=== PATIENT | female | born 1985 | race African-American/Black ===

== ENCOUNTER 2021-01-15 00:47 | Observation (INO) | payer SELFPAY ==
[2021-01-15] MEDS ORDERED: Ondansetron PF 4 MG/2 ML Vial ONE (01:23)
[2021-01-15] MEDS ORDERED: Aspirin Chewable 81 MG TAB ONE (01:24)
[2021-01-15 01:28] LABS: #Basophils 0.1 10x3/uL (0.0-0.2); #Eosinphils 0.3 10x3/uL (0.0-0.5); #Monocytes 0.8 10x3/uL (0.0-1.1); #Neutrophils 3.4 10x3/uL (1.5-8.4); %Eosinophils 3.7 % (0.0-6.0); %Lymphocytes 40.6 % (18.0-47.0); %Monocytes 10.2 % (0.0-10.0); %Neutrophils 44.4 % (40.0-75.0); Hemoglobin 14.3 g/dL (12.0-15.5); Mean Corpuscular HGB CONC 33.5 g/dL (32.0-36.0); Mean Corpuscular Hemoglobin 29.9 pg (27.0-33.0); Mean Corpuscular Volume 89.3 fl (81.6-98.3); Mean Platelet Volume 11.8 fl (7.4-10.4); Platelet Count 228 10x3/uL (150-450); RBC Distribution Width 13.4 % (11.5-14.5); Red Blood Cell (RBC) Count 4.78 10x6/uL (3.90-5.03); White Blood Cell (WBC) Count 7.6 10x3/uL (3.5-10.5)
[2021-01-15] MEDS ORDERED: diphenhydrAMINE 50 MG/ML VIAL ONE (01:30)
[2021-01-15] MEDS ORDERED: Ketorolac Tromethamine 30 MG/ML VIAL ONE (01:31)
[2021-01-15] MEDS ORDERED: Metoclopramide HCl 10 MG/2 ML VIAL ONE (01:31)
[2021-01-15 01:36] LABS: BHCG - Serum POSITIVE (NEGATIVE); Pregs Control Background? CLEAR/WHITE (CLR/WHITE); Pregs Control Bar Appear? YES (CONTROL BAR)
[2021-01-15 01:45] LABS: ALT (SGPT) 15 U/L (8-55); AST (SGOT) 14 U/L (5-34); Albumin 4.3 g/dL (3.5-5.0); Alkaline Phosphatase 60 U/L (40-110); Anion Gap 14 mmol/L (10-20); BUN (Urea Nitrogen) 11 mg/dL (7.0-18.7); Bilirubin, Total 0.3 mg/dL (0.2-1.2); Calc. Creatinine Clearance 0 mL/min (70-130); Calcium 8.8 mg/dL (7.8-10.44); Carbon Dioxide 20 mmol/L (22-29); Chloride 108 mmol/L (98-107); Globulin 2.9 g/dL (2.4-3.5); Glucose 99 mg/dL (70-105); Lipase 56 U/L (8-78); Potassium 3.4 mmol/L (3.5-5.1); Protein, Total 7.2 g/dL (6.0-8.3); Sodium 139 mmol/L (136-145)
[2021-01-15] MEDS ORDERED: Promethazine HCl 25 MG/ML VIAL IM PRN (04:56)
[2021-01-15] MEDS ORDERED: Ondansetron PF 4 MG/2 ML Vial IVP PRN (04:56)
[2021-01-15 05:18] LABS: SARS-CoV-2 NAA Rapid Test Not Detected (NotDetected)
[2021-01-15] MEDS ORDERED: Albuterol Sulfate 2.5 mg/3 ml Neb NEB PRN (05:26)
[2021-01-15 08:42] VITALS: BMI 34.4
[2021-01-15] MEDS ORDERED: FLU VACC QS2021-22(6MOS UP)/PF 60 MCG/0.5 ML SYRINGE IM ONE (09:15)
[2021-01-16] MEDS: Acetaminophen 325 MG TAB PO PRN ×2 (12:57→20:57)
[2021-01-16] MEDS ORDERED: Cyclobenzaprine 10 MG TAB PO PRN (20:45)
[2021-01-17 07:58] VITALS: BP 125/77; TEMP 98.4
== END 2021-01-17 09:00 | disposition home or self-care (01) ==
LOC: CSHERS 00:47 → CSHPP 08:02
PROVIDERS: ADMIT Obstetrics & Gynecology; ATTEND Obstetrics & Gynecology
DX: N94.89 Other specified conditions associated with female genital organs and menstrual cycle (principal); N92.0 Excessive and frequent menstruation with regular cycle; R10.2 Pelvic and perineal pain; G43.909 Migraine, unspecified, not intractable, without status migrainosus; R11.2 Nausea with vomiting, unspecified; R07.89 Other chest pain; I10 Essential (primary) hypertension; J45.909 Unspecified asthma, uncomplicated; M79.603 Pain in arm, unspecified; Z33.1 Pregnant state, incidental; Z91.030 Bee allergy status; Z20.822 Contact with and (suspected) exposure to COVID-19
CPT/HCPCS: 36415; 70450; 71045; 76856; 80053; 83690; 83735; 83880; 84484; 84702; 84703; 85025; 85379; 86850; 86900; 86901; 93005; J1200; J1885; J2405; J2765; J9250; U0002

== ENCOUNTER 2021-08-30 12:44 | Emergency (ER) | payer OTHER ==
[2021-08-30] MEDS ORDERED: Ketorolac Tromethamine 30 MG/ML VIAL ONE (13:15)
[2021-08-30 13:25] LABS: #Basophils 0.1 10x3/uL (0.0-0.2); #Eosinphils 0.1 10x3/uL (0.0-0.5); #Monocytes 0.8 10x3/uL (0.0-1.1); #Neutrophils 3.4 10x3/uL (1.5-8.4); %Basophils 0.8 % (0.0-2.0); %Eosinophils 1.3 % (0.0-6.0); %Lymphocytes 28.5 % (18.0-47.0); %Monocytes 12.4 % (0.0-10.0); %Neutrophils 56.7 % (40.0-75.0); Hemoglobin 14.8 g/dL (12.0-15.5); Mean Corpuscular HGB CONC 33.5 g/dL (32.0-36.0); Mean Corpuscular Hemoglobin 29.7 pg (27.0-33.0); Mean Corpuscular Volume 88.6 fl (81.6-98.3); Mean Platelet Volume 11.8 fl (7.4-10.4); Platelet Count 212 10x3/uL (150-450); RBC Distribution Width 13.8 % (11.5-14.5); Red Blood Cell (RBC) Count 4.99 10x6/uL (3.90-5.03)
[2021-08-30 13:32] LABS: ALT (SGPT) 16 U/L (8-55); AST (SGOT) 17 U/L (5-34); Albumin 4.8 g/dL (3.5-5.0); Alkaline Phosphatase 64 U/L (40-110); Anion Gap 16 mmol/L (10-20); BUN (Urea Nitrogen) 12 mg/dL (7.0-18.7); Bilirubin, Total 0.3 mg/dL (0.2-1.2); CK (CPK) 163 U/L (29-168); Calc. Creatinine Clearance 0 mL/min (70-130); Calcium 9.5 mg/dL (7.8-10.44); Carbon Dioxide 22 mmol/L (22-29); Chloride 106 mmol/L (98-107); Estimated GFR 102; Globulin 3.2 g/dL (2.4-3.5); Glucose 90 mg/dL (70-105); Lipase 9 U/L (8-78); Magnesium 1.8 mg/dL (1.6-2.6); Sodium 140 mmol/L (136-145)
[2021-08-30 13:42] LABS: BHCG - Serum Negative (NEGATIVE)
[2021-08-30 13:43] LABS: Pregs Control Background? CLEAR/WHITE (CLR/WHITE); Pregs Control Bar Appear? YES (CONTROL BAR)
[2021-08-30] MEDS ORDERED: Mag-Al Plus 1200 MG/1200 MG/120 MG/30 ML UDCUP ONE (14:15)
[2021-08-30] MEDS ORDERED: Lidocaine Viscous Sol 2% 15 ml UD Cup ONE (14:16)
[2021-08-30] MEDS ORDERED: Ondansetron PF 4 MG/2 ML Vial ONE (14:40)
[2021-08-30] MEDS ORDERED: Pantoprazole 40 MG VIAL ONE (14:41)
[2021-08-30 14:47] LABS: Bilirubin Neg (Negative); Blood, Urine Negative (Negative); Clarity Clear (Clear); Glucose, Urine (Dipstick) Normal (Negative); Ketone, Urine 5 mg/dL (Negative); Leukocyte Negative (Negative); Nitrite Negative (Negative); Protein, Urine (Dipstick) 15 mg/dl (Neg-Trace); Specific Gravity, Urine 1.025 (1.002-1.036); Urobilinogen Normal mg/dL (Less than 2)
== END 2021-08-30 15:22 | disposition home or self-care (01) ==
LOC: CSHERS 12:44
DX: K64.8 Other hemorrhoids (principal); R07.89 Other chest pain; R10.13 Epigastric pain; I10 Essential (primary) hypertension; I25.2 Old myocardial infarction
CPT/HCPCS: 71045; 80053; 81003; 82550; 83690; 83735; 84484; 84703; 85025; 93005; 96374; 96375; C9113; J1885; J2405

== ENCOUNTER 2022-02-28 22:45 | Emergency (ER) | payer OTHER ==
[2022-02-28] MEDS ORDERED: Ketorolac Tromethamine 30 MG/ML VIAL ONE (23:36)
[2022-02-28 23:43] LABS: Bilirubin Neg (Negative); Blood, Urine Negative (Negative); Clarity Clear (Clear); Glucose, Urine (Dipstick) Normal (Negative); Ketone, Urine Negative (Negative); Leukocyte Negative (Negative); Nitrite Negative (Negative); Protein, Urine (Dipstick) Negative (Neg-Trace); Specific Gravity, Urine 1.015 (1.005-1.030); Urobilinogen Normal mg/dL (Less than 2)
[2022-02-28 23:49] LABS: Hemoglobin 14.6 g/dL (12.0-15.5); MDiff Complete? YES; Mean Corpuscular HGB CONC 34.8 g/dL (32.0-36.0); Mean Corpuscular Hemoglobin 31.3 pg (27.0-33.0); Mean Corpuscular Volume 90.1 fl (81.6-98.3); Mean Platelet Volume 12.5 fl (7.4-10.4); Platelet Count 200 10x3/uL (150-450); Platelet Morphology Comment Appears Adequate; RBC Distribution Width 13.6 % (11.5-14.5); Red Blood Cell (RBC) Count 4.66 10x6/uL (3.90-5.03); White Blood Cell (WBC) Count 8.9 10x3/uL (3.5-10.5)
[2022-03-01 00:07] LABS: BHCG - Serum Negative (NEGATIVE); Pregs Control Bar Appear? YES (CONTROL BAR)
[2022-03-01 00:08] LABS: Pregs Control Background? CLEAR/WHITE (CLR/WHITE)
[2022-03-01 00:14] LABS: ALT (SGPT) 16 U/L (8-55); AST (SGOT) 16 U/L (5-34); Albumin 4.5 g/dL (3.5-5.0); Alkaline Phosphatase 69 U/L (40-110); Anion Gap 11 mmol/L (10-20); BUN (Urea Nitrogen) 11 mg/dL (7.0-18.7); Bilirubin, Total 0.2 mg/dL (0.2-1.2); Calc. Creatinine Clearance 0 mL/min (70-130); Calcium 9.3 mg/dL (7.8-10.44); Carbon Dioxide 26 mmol/L (22-29); Chloride 107 mmol/L (98-107); Estimated GFR 101; Globulin 3.1 g/dL (2.4-3.5); Glucose 92 mg/dL (70-105); Potassium 3.6 mmol/L (3.5-5.1); Protein, Total 7.6 g/dL (6.0-8.3); Sodium 140 mmol/L (136-145)
[2022-03-01 00:29] LABS: Eosinophils 1 % (0-10); Lymphocytes 39 % (21-51); Monocytes 8 % (0-10); Neutrophil 49 % (42-75); Reactive Lymphocytes 3 % (0-10)
[2022-03-01] MEDS ORDERED: Morphine 4 MG/ML VIAL ONE (01:54)
[2022-03-01] MEDS ORDERED: Iopamidol 370 76% 100 ML VIAL ONE (09:13)
== END 2022-03-01 02:30 | disposition home or self-care (01) ==
LOC: CSHERS 22:45
DX: M54.6 Pain in thoracic spine (principal); I10 Essential (primary) hypertension
CPT/HCPCS: 71275; 80053; 81003; 84703; 85025; 93005; 96361; 96374; 96375; J1885; J2270; Q9967

== ENCOUNTER 2022-06-17 14:21 | Emergency (ER) | payer OTHER ==
[2022-06-17 15:33] LABS: Bilirubin Neg (Negative); Blood, Urine 250 (Negative); Clarity Slightly Cloudy (Clear); Glucose, Urine (Dipstick) Normal (Negative); Ketone, Urine Negative (Negative); Leukocyte 25 (Negative); Nitrite Negative (Negative); Protein, Urine (Dipstick) 30 mg/dl (Neg-Trace); Specific Gravity, Urine 1.025 (1.005-1.030); Urobilinogen Normal mg/dL (Less than 2)
[2022-06-17 15:39] LABS: WBC/HPF 0-3 HPF (0-3)
[2022-06-17 15:40] LABS: Bacteria/HPF 2+ HPF (None Seen); Mucous/LPF 2+ LPF (<2+); RBC/HPF 21-50 HPF (0-3)
[2022-06-17 15:50] LABS: #Basophils 0.1 10x3/uL (0.0-0.2); #Eosinphils 0.2 10x3/uL (0.0-0.5); #Monocytes 0.8 10x3/uL (0.0-1.1); #Neutrophils 5.8 10x3/uL (1.5-8.4); %Basophils 0.5 % (0.0-2.0); %Lymphocytes 27.1 % (18.0-47.0); %Monocytes 8.2 % (0.0-10.0); %Neutrophils 61.9 % (40.0-75.0); Hemoglobin 13.6 g/dL (12.0-15.5); Mean Corpuscular HGB CONC 32.8 g/dL (32.0-36.0); Mean Corpuscular Hemoglobin 29.3 pg (27.0-33.0); Mean Corpuscular Volume 89.4 fl (81.6-98.3); Mean Platelet Volume 11.6 fl (7.4-10.4); Platelet Count 217 10x3/uL (150-450); RBC Distribution Width 13.4 % (11.5-14.5); Red Blood Cell (RBC) Count 4.64 10x6/uL (3.90-5.03); White Blood Cell (WBC) Count 9.4 10x3/uL (3.5-10.5)
[2022-06-17 15:57] LABS: ALT (SGPT) 17 U/L (8-55); AST (SGOT) 17 U/L (5-34); Albumin 4.1 g/dL (3.5-5.0); Alkaline Phosphatase 53 U/L (40-110); Anion Gap 15 mmol/L (10-20); BUN (Urea Nitrogen) 9 mg/dL (7.0-18.7); Bilirubin, Total 0.3 mg/dL (0.2-1.2); Calc. Creatinine Clearance 0 mL/min (70-130); Calcium 8.7 mg/dL (7.8-10.44); Carbon Dioxide 19 mmol/L (22-29); Chloride 107 mmol/L (98-107); Estimated GFR 116; Globulin 2.8 g/dL (2.4-3.5); Glucose 71 mg/dL (70-105); Potassium 3.5 mmol/L (3.5-5.1); Protein, Total 6.9 g/dL (6.0-8.3); Sodium 137 mmol/L (136-145)
== END 2022-06-17 16:48 | disposition home or self-care (01) ==
LOC: CSHERS 14:21
DX: O23.41 Unspecified infection of urinary tract in pregnancy, first trimester (principal); N39.0 Urinary tract infection, site not specified; O10.911 Unspecified pre-existing hypertension complicating pregnancy, first trimester; O99.011 Anemia complicating pregnancy, first trimester; D64.9 Anemia, unspecified; Z3A.01 Less than 8 weeks gestation of pregnancy; O09.521 Supervision of elderly multigravida, first trimester
CPT/HCPCS: 36415; 76801; 80053; 81003; 81015; 84702; 85025; 86900; 86901

== ENCOUNTER 2022-06-24 02:38 | Emergency (ER) | payer OTHER ==
[2022-06-24] MEDS ORDERED: Ondansetron PF 4 MG/2 ML Vial ONE ×2 (03:09→03:10)
[2022-06-24 03:28] LABS: Mean Corpuscular HGB CONC 34.1 g/dL (32.0-36.0); Mean Corpuscular Hemoglobin 29.8 pg (27.0-33.0); Mean Corpuscular Volume 87.2 fl (81.6-98.3); Mean Platelet Volume 12.4 fl (7.4-10.4); Platelet Count 245 10x3/uL (150-450); RBC Distribution Width 13.7 % (11.5-14.5); White Blood Cell (WBC) Count 11.3 10x3/uL (3.5-10.5)
[2022-06-24 03:29] LABS: MDiff Complete? YES
[2022-06-24 03:39] LABS: ALT (SGPT) 13 U/L (8-55); AST (SGOT) 13 U/L (5-34); Albumin 4.1 g/dL (3.5-5.0); Alkaline Phosphatase 60 U/L (40-110); Anion Gap 13 mmol/L (10-20); BUN (Urea Nitrogen) 8 mg/dL (7.0-18.7); Bilirubin, Total 0.2 mg/dL (0.2-1.2); Calc. Creatinine Clearance 0 mL/min (70-130); Calcium 9.1 mg/dL (7.8-10.44); Carbon Dioxide 20 mmol/L (22-29); Chloride 106 mmol/L (98-107); Estimated GFR 115; Glucose 98 mg/dL (70-105); Potassium 3.7 mmol/L (3.5-5.1); Protein, Total 7.1 g/dL (6.0-8.3); Sodium 135 mmol/L (136-145)
[2022-06-24 03:47] LABS: Platelet Morphology Comment Appears Adequate; RBC Morphology Normal
[2022-06-24 04:02] LABS: Band 4 % (5-11); Eosinophils 4 % (0-10); Lymphocytes 29 % (21-51); Monocytes 11 % (0-10); Neutrophil 52 % (42-75)
[2022-06-24] MEDS ORDERED: Acetaminophen 500 MG TAB ONE (04:28)
[2022-06-24 05:01] LABS: Bilirubin Neg (Negative); Blood, Urine Negative (Negative); Clarity Slightly Cloudy (Clear); Glucose, Urine (Dipstick) Normal (Negative); Ketone, Urine Negative (Negative); Leukocyte Negative (Negative); Nitrite Negative (Negative); Protein, Urine (Dipstick) Negative (Neg-Trace); Urobilinogen Normal mg/dL (Less than 2)
== END 2022-06-24 05:38 | disposition home or self-care (01) ==
LOC: CSHERS 02:38
DX: O20.0 Threatened abortion (principal); D72.829 Elevated white blood cell count, unspecified; I10 Essential (primary) hypertension; Z3A.01 Less than 8 weeks gestation of pregnancy
CPT/HCPCS: 80053; 81003; 83880; 84484; 84702; 85025; 85379; 86140; 93005; 96365; J2405

== ENCOUNTER 2022-07-06 00:08 | Emergency (ER) | payer OTHER ==
[2022-07-06 00:50] LABS: Bilirubin Neg (Negative); Blood, Urine 25 (Negative); Clarity Clear (Clear); Glucose, Urine (Dipstick) Normal (Negative); Ketone, Urine 5 mg/dL (Negative); Leukocyte Negative (Negative); Nitrite Negative (Negative); Protein, Urine (Dipstick) Negative (Neg-Trace); Specific Gravity, Urine 1.025 (1.005-1.030); Urobilinogen Normal mg/dL (Less than 2)
[2022-07-06 01:00] LABS: #Basophils 0.1 10x3/uL (0.0-0.2); #Eosinphils 0.3 10x3/uL (0.0-0.5); #Monocytes 0.8 10x3/uL (0.0-1.1); #Neutrophils 5.7 10x3/uL (1.5-8.4); %Basophils 0.6 % (0.0-2.0); %Eosinophils 2.6 % (0.0-6.0); %Lymphocytes 27.5 % (18.0-47.0); %Monocytes 8.7 % (0.0-10.0); %Neutrophils 60.3 % (40.0-75.0); Hemoglobin 12.9 g/dL (12.0-15.5); Mean Corpuscular HGB CONC 34.8 g/dL (32.0-36.0); Mean Corpuscular Hemoglobin 30.2 pg (27.0-33.0); Mean Corpuscular Volume 86.9 fl (81.6-98.3); Mean Platelet Volume 11.6 fl (7.4-10.4); Platelet Count 218 10x3/uL (150-450); RBC Distribution Width 13.8 % (11.5-14.5); Red Blood Cell (RBC) Count 4.27 10x6/uL (3.90-5.03); White Blood Cell (WBC) Count 9.5 10x3/uL (3.5-10.5)
[2022-07-06 01:04] LABS: Bacteria/HPF None Seen HPF (None Seen); RBC/HPF 0-3 HPF (0-3); Squamous Epithelial 0-3 HPF (0-3); WBC/HPF None Seen HPF (0-3)
== END 2022-07-06 01:46 | disposition home or self-care (01) ==
LOC: CSHERS 00:08
DX: O20.0 Threatened abortion (principal); O10.911 Unspecified pre-existing hypertension complicating pregnancy, first trimester; O99.011 Anemia complicating pregnancy, first trimester; I25.2 Old myocardial infarction; Z3A.12 12 weeks gestation of pregnancy
CPT/HCPCS: 76856; 81003; 81015; 85025; 86900; 86901

== ENCOUNTER 2022-09-10 20:50 | Day surgery (SDC) | payer OTHER ==
[2022-09-10 21:09] VITALS: BMI 34.6
[2022-09-10] MEDS ORDERED: hydrALAZINE 20 MG/ML VIAL SLOW IVP PRN (22:08)
[2022-09-10 23:02] LABS: Bilirubin Neg (Negative); Blood, Urine Negative (Negative); Clarity Clear (Clear); Glucose, Urine (Dipstick) Normal (Negative); Ketone, Urine 15 mg/dL (Negative); Leukocyte Negative (Negative); Nitrite Negative (Negative); Protein, Urine (Dipstick) Negative (Neg-Trace); Urobilinogen Normal mg/dL (Less than 2)
[2022-09-10 23:09] LABS: Bacteria/HPF None Seen HPF (None Seen); CAUTI Indications for Culture Acute Hematuria; RBC/HPF 0-3 HPF (0-3); Squamous Epithelial 0-3 HPF (0-3); Urine Culture Reflex No No; WBC/HPF 0-3 HPF (0-3)
== END 2022-09-10 23:30 | disposition home or self-care (01) ==
LOC: CSHERS 20:50 → CSHLD/OP 20:55
PROVIDERS: ATTEND Obstetrics & Gynecology
DX: O46.92 Antepartum hemorrhage, unspecified, second trimester (principal); O99.352 Diseases of the nervous system complicating pregnancy, second trimester; G43.909 Migraine, unspecified, not intractable, without status migrainosus; O10.912 Unspecified pre-existing hypertension complicating pregnancy, second trimester; Z91.030 Bee allergy status; Z87.59 Personal history of other complications of pregnancy, childbirth and the puerperium; Z79.82 Long term (current) use of aspirin; Z79.899 Other long term (current) drug therapy; Z3A.20 20 weeks gestation of pregnancy
CPT/HCPCS: 81001; 99283

== ENCOUNTER 2022-11-14 17:43 | Emergency (ER) | payer OTHER ==
[2022-11-14] MEDS ORDERED: Acetaminophen 325 MG TAB ONE (19:22)
== END 2022-11-14 20:15 | disposition home or self-care (01) ==
LOC: CSHERS 17:43
DX: O9A.213 Injury, poisoning and certain other consequences of external causes complicating pregnancy, third trimester (principal); S06.0X0A Concussion without loss of consciousness, initial encounter; O99.891 Other specified diseases and conditions complicating pregnancy; R10.84 Generalized abdominal pain; O10.913 Unspecified pre-existing hypertension complicating pregnancy, third trimester; V03.99XA Pedestrian with other conveyance injured in collision with car, pick-up truck or van, unspecified whether traffic or nontraffic accident, initial encounter; Y92.481 Parking lot as the place of occurrence of the external cause; Z3A.29 29 weeks gestation of pregnancy
CPT/HCPCS: 70450

== ENCOUNTER 2022-11-14 20:33 | Day surgery (SDC) | payer OTHER ==
[2022-11-14 20:50] VITALS: BMI 36.8
[2022-11-14] MEDS ORDERED: hydrALAZINE 20 MG/ML VIAL SLOW IVP PRN (21:22)
[2022-11-14 22:16] LABS: Bilirubin Neg (Negative); Blood, Urine Negative (Negative); Clarity Clear (Clear); Glucose, Urine (Dipstick) Normal (Negative); Ketone, Urine Negative (Negative); Leukocyte Negative (Negative); Nitrite Negative (Negative); Protein, Urine (Dipstick) 15 mg/dl (Neg-Trace); Specific Gravity, Urine 1.015 (1.005-1.030); Urobilinogen Normal mg/dL (Less than 2)
[2022-11-14 22:28] LABS: #Eosinphils 0.2 10x3/uL (0.0-0.5); #Monocytes 0.9 10x3/uL (0.0-1.1); #Neutrophils 4.9 10x3/uL (1.5-8.4); %Basophils 0.5 % (0.0-2.0); %Eosinophils 2.9 % (0.0-6.0); %Lymphocytes 27.3 % (18.0-47.0); %Monocytes 10.1 % (0.0-10.0); %Neutrophils 58.6 % (40.0-75.0); Hematocrit 30.8 % (34.9-44.5); Hemoglobin 10.3 g/dL (12.0-15.5); Mean Corpuscular HGB CONC 33.4 g/dL (32.0-36.0); Mean Corpuscular Volume 86.8 fl (81.6-98.3); Mean Platelet Volume 12.1 fl (7.4-10.4); Platelet Count 193 10x3/uL (150-450); RBC Distribution Width 12.6 % (11.5-14.5); Red Blood Cell (RBC) Count 3.55 10x6/uL (3.90-5.03); White Blood Cell (WBC) Count 8.4 10x3/uL (3.5-10.5)
[2022-11-14 22:39] LABS: CAUTI Indications for Culture Pregnancy; RBC/HPF 0-3 HPF (0-3); Squamous Epithelial 0-3 HPF (0-3); WBC/HPF 0-3 HPF (0-3)
[2022-11-14 22:40] LABS: Bacteria/HPF None Seen HPF (None Seen); Urine Culture Reflex Yes Yes
[2022-11-14 23:45] LABS: PTT 27.9 sec (22.0-33.0); Prothrombin Time 10.3 sec (9.5-12.1)
== END 2022-11-14 23:58 | disposition home or self-care (01) ==
LOC: CSHSDC/OP 20:33
PROVIDERS: ATTEND Family Medicine
DX: O9A.213 Injury, poisoning and certain other consequences of external causes complicating pregnancy, third trimester (principal); O16.3 Unspecified maternal hypertension, third trimester; Z3A.29 29 weeks gestation of pregnancy; Z91.030 Bee allergy status; Z79.899 Other long term (current) drug therapy; Z79.82 Long term (current) use of aspirin; V49.9XXA Car occupant (driver) (passenger) injured in unspecified traffic accident, initial encounter
CPT/HCPCS: 36415; 76815; 81001; 85025; 85384; 85460; 85610; 85730; 86900; 86901; 87086

== ENCOUNTER 2023-01-17 10:20 | Inpatient (IN) | payer OTHER ==
[2023-01-17] MEDS ORDERED: Oxytocin 10 UNITS/ML VIAL ONE ×4 (11:08→12:52)
[2023-01-17] MEDS ORDERED: Ondansetron PF 4 MG/2 ML Vial ONE (11:08)
[2023-01-17] MEDS ORDERED: Ketorolac Tromethamine 30 MG/ML VIAL ONE (11:08)
[2023-01-17] MEDS ORDERED: Dexamethasone 4 mg/ml Vial ONE (11:08)
[2023-01-17] MEDS ORDERED: Metoclopramide HCl 10 MG/2 ML VIAL ONE (11:08)
[2023-01-17] MEDS ORDERED: Morphine PF 10 MG/10 ML VIAL ONE (11:09)
[2023-01-17] MEDS ORDERED: Phenylephrine 40 MG/NS 250 ML 250 ML ONE (11:11)
[2023-01-17] MEDS ORDERED: Meperidine HCl/PF 25 MG/ML VIAL SLOW IVP PRN (11:24)
[2023-01-17] MEDS ORDERED: Promethazine HCl 25 MG/ML VIAL IM PRN ×2 (11:24→13:18)
[2023-01-17] MEDS ORDERED: Moisturizing Cream (Eucerin) 113 GM JAR TOP PRN (11:24)
[2023-01-17] MEDS ORDERED: Ondansetron PF 4 MG/2 ML Vial IVP PRN ×3 (11:24→13:18)
[2023-01-17] MEDS ORDERED: Naloxone HCl 0.4 mg/ml Vial IV PRN (11:24)
[2023-01-17] MEDS ORDERED: Naloxone HCl 0.4 mg/ml Vial IVP PRN ×2 (11:24)
[2023-01-17] MEDS ORDERED: Promethazine HCl 25 MG SUPP PR PRN (11:24)
[2023-01-17] MEDS ORDERED: diphenhydrAMINE 50 MG/ML VIAL IVP PRN (11:24)
[2023-01-17] MEDS ORDERED: fentaNYL 50 mcg/mL 1 mL Vial SLOW IVP PRN (11:24)
[2023-01-17] MEDS ORDERED: Communication Order-Pharmacy FS SCH (11:30)
[2023-01-17] MEDS ORDERED: CEFAZOLIN 2 GM VIAL ONE (11:54)
[2023-01-17 12:50] LABS: Hemoglobin 10.8 g/dL (12.0-15.5); Mean Corpuscular HGB CONC 31.8 g/dL (32.0-36.0); Mean Corpuscular Hemoglobin 25.8 pg (27.0-33.0); Mean Corpuscular Volume 81.3 fl (81.6-98.3); Platelet Count 181 10x3/uL (150-450); RBC Distribution Width 14.5 % (11.5-14.5); Red Blood Cell (RBC) Count 4.18 10x6/uL (3.90-5.03); White Blood Cell (WBC) Count 6.5 10x3/uL (3.5-10.5)
[2023-01-17] MEDS ORDERED: Misoprostol 200 MCG TAB PR PRN ×2 (13:18→13:23)
[2023-01-17] MEDS ORDERED: Carboprost 250 MCG/ML AMP IM PRN (13:18)
[2023-01-17] MEDS ORDERED: Diphenoxylate HCl/Atropine Tablet PO PRN ×2 (13:18)
[2023-01-17] MEDS ORDERED: hydrALAZINE 20 MG/ML VIAL SLOW IVP PRN ×2 (13:18→13:23)
[2023-01-17] MEDS ORDERED: Bicitra 30 ML UDCUP PO PRN (13:18)
[2023-01-17] MEDS ORDERED: Famotidine/PF 20 mg/2ml Vial SLOW IVP PRN (13:18)
[2023-01-17] MEDS ORDERED: Bisacodyl 10 MG SUPP PR PRN (13:23)
[2023-01-17] MEDS ORDERED: Acetaminophen 325 MG TAB PO PRN (13:23)
[2023-01-17] MEDS ORDERED: Boostrix 0.5 ML (Tdap) VIAL (>/=7 yrs of age) IM ONE (13:23)
[2023-01-17] MEDS ORDERED: CEFAZOLIN 2 GM in Sodium Chloride 0.9% 100 ML IVPB SCH (13:30)
[2023-01-17] MEDS ORDERED: Lactated Ringer's 1,000 ML IV SCH (13:30)
[2023-01-17] MEDS ORDERED: Oxytocin 30 units/NS 500 ML 500 ML IV SCH (13:30)
[2023-01-17 14:17] LABS: Syphilis Antibody Nonreactive (Nonreactive); Syphilis Antibody Index 0.03 S/CO (<1.00 Non-Reactive)
[2023-01-17 14:18] LABS: Hep B Surf Ag - L&D Non-Reactive S/CO (NonReactive)
[2023-01-17] MEDS ORDERED: Ketorolac Tromethamine 30 MG/ML VIAL IVP PRN (17:00)
[2023-01-17] MEDS: Ketorolac Tromethamine 30 MG/ML VIAL IVP PRN (21:28)
[2023-01-17] MEDS: Ferrous Sulfate 325 MG TAB PO SCH (21:46)
[2023-01-17] MEDS: Docusate 100 MG CAP PO SCH (21:46)
[2023-01-18 04:11] LABS: Hematocrit 24.7 % (34.9-44.5); Hemoglobin 8.3 g/dL (12.0-15.5); Mean Corpuscular HGB CONC 33.6 g/dL (32.0-36.0); Mean Corpuscular Hemoglobin 27.5 pg (27.0-33.0); Mean Corpuscular Volume 81.8 fl (81.6-98.3); Mean Platelet Volume 12.5 fl (7.4-10.4); Platelet Count 170 10x3/uL (150-450); RBC Distribution Width 14.6 % (11.5-14.5); Red Blood Cell (RBC) Count 3.02 10x6/uL (3.90-5.03); White Blood Cell (WBC) Count 11.9 10x3/uL (3.5-10.5)
[2023-01-18] MEDS: Ketorolac Tromethamine 30 MG/ML VIAL IVP PRN (05:21)
[2023-01-18] MEDS: Prenatal Vitamin 1 TAB PO SCH (08:26)
[2023-01-18] MEDS: Ferrous Sulfate 325 MG TAB PO SCH ×2 (08:26→21:55)
[2023-01-18] MEDS: Docusate 100 MG CAP PO SCH ×2 (08:26→21:55)
[2023-01-18] MEDS: HYDROcodone/Acetaminophen 5/325 mg Tablet PO PRN ×4 (08:38→21:59)
[2023-01-18] MEDS: Ibuprofen 800 MG TAB PO SCH ×2 (13:54→21:55)
[2023-01-18] MEDS ORDERED: Ibuprofen 800 MG TAB PO SCH (22:00)
[2023-01-19] MEDS: HYDROcodone/Acetaminophen 5/325 mg Tablet PO PRN ×5 (03:47→20:07)
[2023-01-19] MEDS: Ibuprofen 800 MG TAB PO SCH ×3 (06:02→22:10)
[2023-01-19] MEDS: Ferrous Sulfate 325 MG TAB PO SCH ×2 (08:01→22:09)
[2023-01-19] MEDS: Prenatal Vitamin 1 TAB PO SCH (08:01)
[2023-01-19] MEDS: Docusate 100 MG CAP PO SCH ×2 (08:01→22:09)
[2023-01-19] MEDS: Simethicone Chewable 80 MG TAB PO PRN ×4 (08:04→20:11)
[2023-01-20] MEDS: Ibuprofen 800 MG TAB PO SCH ×2 (04:28→13:31)
[2023-01-20] MEDS: HYDROcodone/Acetaminophen 5/325 mg Tablet PO PRN ×3 (04:28→13:32)
[2023-01-20] MEDS: Simethicone Chewable 80 MG TAB PO PRN (04:29)
[2023-01-20] MEDS ORDERED: Polyethylene Glycol 3350 17 GM Packet PO SCH ×2 (07:15→21:00)
[2023-01-20 08:38] LABS: #Eosinphils 0.2 10x3/uL (0.0-0.5); #Monocytes 0.7 10x3/uL (0.0-1.1); #Neutrophils 3.9 10x3/uL (1.5-8.4); %Basophils 0.6 % (0.0-2.0); %Lymphocytes 27.6 % (18.0-47.0); %Monocytes 9.6 % (0.0-10.0); %Neutrophils 57.3 % (40.0-75.0); Hematocrit 25.6 % (34.9-44.5); Hemoglobin 8.1 g/dL (12.0-15.5); Mean Corpuscular HGB CONC 31.6 g/dL (32.0-36.0); Mean Corpuscular Hemoglobin 26.5 pg (27.0-33.0); Mean Corpuscular Volume 83.7 fl (81.6-98.3); Mean Platelet Volume 12.5 fl (7.4-10.4); Platelet Count 157 10x3/uL (150-450); RBC Distribution Width 14.7 % (11.5-14.5); Red Blood Cell (RBC) Count 3.06 10x6/uL (3.90-5.03); White Blood Cell (WBC) Count 6.7 10x3/uL (3.5-10.5)
[2023-01-20 08:52] LABS: ALT (SGPT) 14 U/L (8-55); AST (SGOT) 20 U/L (5-34); Albumin 2.8 g/dL (3.5-5.0); Alkaline Phosphatase 63 U/L (40-110); Anion Gap 13 mmol/L (10-20); BUN (Urea Nitrogen) 4 mg/dL (7.0-18.7); Bilirubin, Total 0.2 mg/dL (0.2-1.2); Calc. Creatinine Clearance 0 mL/min (70-130); Carbon Dioxide 25 mmol/L (22-29); Chloride 105 mmol/L (98-107); Estimated GFR 119; Globulin 2.6 g/dL (2.4-3.5); Glucose 77 mg/dL (70-105); Potassium 3.6 mmol/L (3.5-5.1); Protein, Total 5.4 g/dL (6.0-8.3); Sodium 139 mmol/L (136-145)
[2023-01-20] MEDS: Ferrous Sulfate 325 MG TAB PO SCH (09:10)
[2023-01-20] MEDS: Prenatal Vitamin 1 TAB PO SCH (09:10)
[2023-01-20] MEDS: Docusate 100 MG CAP PO SCH (09:11)
[2023-01-20 10:21] LABS: Creatinine, Urine 56.33 mg/dL (47-110)
[2023-01-20 13:02] VITALS: BP 131/80; TEMP 98.6
== END 2023-01-20 14:00 | disposition home or self-care (01) | DRG 787 ==
LOC: CSHLD 10:20 → CSHPP 17:56
PROVIDERS: ADMIT Obstetrics & Gynecology; ATTEND Obstetrics & Gynecology
PROC: 10D00Z1 Extraction of Products of Conception, Low, Open Approach (ICD-10-PCS; principal; 2023-01-17)
DX: O34.211 Maternal care for low transverse scar from previous cesarean delivery (principal); D62 Acute posthemorrhagic anemia; O16.4 Unspecified maternal hypertension, complicating childbirth; O09.523 Supervision of elderly multigravida, third trimester; Z3A.38 38 weeks gestation of pregnancy; Z37.0 Single live birth; O99.02 Anemia complicating childbirth; O90.89 Other complications of the puerperium, not elsewhere classified; K59.00 Constipation, unspecified
CPT/HCPCS: 36415; 51702; 80053; 82570; 84156; 85025; 85027; 86780; 86850; 86900; 86901; 87340; J1100; J1885; J2274; J2405; J2590; J2765

== ENCOUNTER 2023-12-11 14:20 | Emergency (ER) | payer OTHER ==
[~2023-12-11 14:20] MED LIST: Iopamidol 370 76% 100 ML VIAL ONE
[2023-12-11 15:11] LABS: ALT (SGPT) 14 U/L (8-55); AST (SGOT) 20 U/L (5-34); Albumin 4.5 g/dL (3.5-5.0); Alkaline Phosphatase 68 U/L (40-110); Anion Gap 16 mmol/L (10-20); BUN (Urea Nitrogen) 10 mg/dL (7.0-18.7); Bilirubin, Total 0.4 mg/dL (0.2-1.2); Calc. Creatinine Clearance 0 mL/min (70-130); Calcium 9.7 mg/dL (7.8-10.44); Carbon Dioxide 18 mmol/L (22-29); Chloride 112 mmol/L (98-107); Estimated GFR 74; Globulin 3.4 g/dL (2.4-3.5); Glucose 118 mg/dL (70-105); Lipase 25 U/L (8-78); Potassium 3.9 mmol/L (3.5-5.1); Protein, Total 7.9 g/dL (6.0-8.3); Sodium 142 mmol/L (136-145)
[2023-12-11 15:17] LABS: Troponin I Less than 0.010 ng/mL (< 0.028)
[2023-12-11 15:21] LABS: #Basophils 0.06 10x3/uL (0.0-0.2); #Eosinophils 0.15 10x3/uL (0.0-0.5); #Monocytes 0.36 10x3/uL (0.0-1.1); #Neutrophils 2.68 10x3/uL (1.5-8.4); %Basophils 1.1 % (0.0-2.0); %Eosinophils 2.7 % (0.0-6.0); %Lymphocytes 42.3 % (18.0-47.0); %Monocytes 6.4 % (0.0-10.0); %Neutrophils 47.3 % (40.0-75.0); Hemoglobin 13.5 g/dL (12.0-15.5); Mean Corpuscular HGB CONC 32.1 g/dL (32.0-36.0); Mean Corpuscular Hemoglobin 26.3 pg (27.0-33.0); Mean Corpuscular Volume 81.9 fL (81.6-98.3); Platelet Count 268 10x3/uL (150-450); RBC Distribution Width 14.4 % (11.5-14.5); Red Blood Cell (RBC) Count 5.13 10x6/uL (3.90-5.03); White Blood Cell (WBC) Count 5.7 10x3/uL (3.5-10.5)
[2023-12-11] MEDS ORDERED: Ketorolac Tromethamine 30 MG (1 mL) VIAL ONE (15:24)
[2023-12-11] MEDS ORDERED: Morphine 4 MG/ML VIAL ONE (15:24)
[2023-12-11 15:41] LABS: BHCG - Serum Negative (NEGATIVE); Pregs Control Background? CLEAR/WHITE (CLR/WHITE); Pregs Control Bar Appear? YES (CONTROL BAR)
== END 2023-12-11 18:25 | disposition home or self-care (01) ==
LOC: CSHERS 14:20
DX: B34.9 Viral infection, unspecified (principal); I10 Essential (primary) hypertension; Z55.0 Illiteracy and low-level literacy
CPT/HCPCS: 71045; 74177; 80053; 83690; 84484; 84703; 85025; 87428; 93005; 93010; 96361; 96374; J1885; J2272; Q9967

== ENCOUNTER 2024-10-15 23:11 | Emergency (ER) | payer OTHER, SELFPAY ==
[2024-10-15] MEDS ORDERED: Ketorolac Tromethamine 30 MG (1 mL) VIAL ONE (23:37)
[2024-10-15 23:38] LABS: #Basophils 0.07 10x3/uL (0.0-0.2); #Eosinophils 0.29 10x3/uL (0.0-0.5); #Monocytes 0.65 10x3/uL (0.0-1.1); #Neutrophils 3.49 10x3/uL (1.5-8.4); %Basophils 0.8 % (0.0-2.0); %Eosinophils 3.4 % (0.0-6.0); %Lymphocytes 46.4 % (18.0-47.0); %Monocytes 7.7 % (0.0-10.0); %Neutrophils 41.5 % (40.0-75.0); Hematocrit 37.9 % (34.9-44.5); Hemoglobin 12.0 g/dL (12.0-15.5); Mean Corpuscular Hemoglobin 26.4 pg (27.0-33.0); Mean Corpuscular Volume 83.3 fL (81.6-98.3); Platelet Count 226 10x3/uL (150-450); Red Blood Cell (RBC) Count 4.55 10x6/uL (3.90-5.03); White Blood Cell (WBC) Count 8.43 10x3/uL (3.5-10.5)
[2024-10-15 23:47] LABS: BHCG - Serum Negative (NEGATIVE); Pregs Control Background? CLEAR/WHITE (CLR/WHITE); Pregs Control Bar Appear? YES (CONTROL BAR)
[2024-10-15 23:54] LABS: ALT (SGPT) 17 U/L (Less than 34); AST (SGOT) 18 U/L (11-34); Albumin 4.3 g/dL (3.1-4.5); Alkaline Phosphatase 69 U/L (40-110); Anion Gap 14 mmol/L (10-20); BUN (Urea Nitrogen) 10 mg/dL (7.0-18.7); Bilirubin, Total 0.2 mg/dL (0.3-1.2); Calc. Creatinine Clearance 0 mL/min (70-130); Calcium 9.4 mg/dL (7.8-10.44); Carbon Dioxide 22 mmol/L (22-29); Chloride 107 mmol/L (98-107); Globulin 3.1 g/dL (2.4-3.5); Glucose 90 mg/dL (70-105); Lipase 69 U/L (8-78); Potassium 3.8 mmol/L (3.5-5.1); Sodium 139 mmol/L (136-145)
[2024-10-16 00:42] LABS: Troponin I Less than 0.010 ng/mL (< 0.028)
== END 2024-10-16 00:53 | disposition home or self-care (01) ==
LOC: CSHERS 23:11
DX: R07.89 Other chest pain (principal); I10 Essential (primary) hypertension
CPT/HCPCS: 71045; 80053; 83690; 84484; 84703; 85025; 93005; 96374; 96375; J1885; J2060; J2270

== ENCOUNTER 2024-12-24 18:41 | Emergency (ER) | payer OTHER ==
[2024-12-24 19:35] LABS: #Basophils 0.05 10x3/uL (0.0-0.2); #Eosinophils 0.03 10x3/uL (0.0-0.5); #Monocytes 0.97 10x3/uL (0.0-1.1); #Neutrophils 11.13 10x3/uL (1.5-8.4); %Basophils 0.4 % (0.0-2.0); %Eosinophils 0.2 % (0.0-6.0); %Lymphocytes 9.7 % (18.0-47.0); %Monocytes 7.2 % (0.0-10.0); %Neutrophils 82.1 % (40.0-75.0); Hematocrit 39.6 % (34.9-44.5); Hemoglobin 12.7 g/dL (12.0-15.5); Mean Corpuscular Hemoglobin 25.3 pg (27.0-33.0); Mean Corpuscular Volume 78.9 fL (81.6-98.3); Platelet Count 197 10x3/uL (150-450); Red Blood Cell (RBC) Count 5.02 10x6/uL (3.90-5.03); White Blood Cell (WBC) Count 13.54 10x3/uL (3.5-10.5)
[2024-12-24 19:46] LABS: ALT (SGPT) 17 U/L (Less than 34); AST (SGOT) 17 U/L (11-34); Albumin 4.3 g/dL (3.1-4.5); Alkaline Phosphatase 81 U/L (40-110); Anion Gap 15 mmol/L (10-20); BUN (Urea Nitrogen) 8 mg/dL (7.0-18.7); Bilirubin, Total 0.4 mg/dL (0.3-1.2); Calc. Creatinine Clearance 0 mL/min (70-130); Calcium 9.1 mg/dL (7.8-10.44); Carbon Dioxide 19 mmol/L (22-29); Chloride 109 mmol/L (98-107); Globulin 3.0 g/dL (2.4-3.5); Glucose 114 mg/dL (70-105); Potassium 4.0 mmol/L (3.5-5.1); Sodium 139 mmol/L (136-145)
[2024-12-24 19:50] LABS: Troponin I Less than 0.010 ng/mL (< 0.028)
[2024-12-24] MEDS ORDERED: Ketorolac Tromethamine 30 MG (1 mL) VIAL ONE (19:50)
[2024-12-24] MEDS ORDERED: Metoclopramide HCl 10 MG (2 mL) VIAL ONE (19:50)
[2024-12-24 19:56] LABS: BHCG - Serum Negative (NEGATIVE); Pregs Control Background? CLEAR/WHITE (CLR/WHITE); Pregs Control Bar Appear? YES (CONTROL BAR)
[2024-12-24] MEDS ORDERED: Dexamethasone 10 MG/ML VIAL ONE (20:11)
[2024-12-24] MEDS ORDERED: diphenhydrAMINE 50 MG/ML VIAL ONE (20:11)
== END 2024-12-24 21:28 | disposition home or self-care (01) ==
LOC: CSHERS 18:41
DX: J39.8 Other specified diseases of upper respiratory tract (principal); I10 Essential (primary) hypertension
CPT/HCPCS: 36415; 71045; 80053; 84484; 84703; 85025; 85379; 87428; 93005; 94640; 94760; 96365; 96366; 96368; 96375; J1100; J1200; J1885; J2765